=== PATIENT | female | born 2000 | race Caucasian/White ===

== ENCOUNTER 2021-07-26 16:14 | Outpatient (CLI) | payer OTHER, SELFPAY ==
[2021-08-02 18:08] LABS: Chlamydia By Nucleic Acid AMP Negative (Negative); Gonococcus By Nucleic Acid AMP Negative (Negative)
[2021-08-03 14:20] LABS: HPV APTIMA, High Risk Negative (Negative)
[2021-08-03 14:25] LABS: HPV Reflexed? YES, CHARGE PATIENT
== END 2021-07-26 23:59 | disposition short-term general hospital (02) ==
LOC: MFPLAB 16:16
PROVIDERS: PCP Family Medicine; Visit Provider Family Medicine
DX: Z12.4 Encounter for screening for malignant neoplasm of cervix (principal)
CPT/HCPCS: 87491; 87591; 87624; 88175; G0145

== ENCOUNTER 2021-07-28 07:08 | Outpatient (CLI) | payer OTHER, SELFPAY ==
[2021-07-28 11:06] LABS: Anion Gap 9 (5-15); BUN 9 mg/dL (7-18); BUN/Creat Ratio 11.2 RATIO (10-20); Calcium,Total 8.9 mg/dL (8.5-10.1); Chloride 107 mmol/L (98-107); Cholesterol 252 mg/dL (200); EST Glomerular Filtration Rate 95 mL/min (>60); Est Glom Filt Rate - Afr Amer 116 mL/min (>60); Glucose 76 mg/dL (74-106); High Density Lipoprotein 83 mg/dL; Sodium Level 138 mmol/L (136-145); Triglycerides 153 mg/dL; Very Low Density Lipoprotein 31 mg/dL (5-40)
== END 2021-07-28 23:59 | disposition short-term general hospital (02) ==
LOC: MTLAB 07:14
PROVIDERS: PCP Family Medicine; Referring Provider Family Medicine; Visit Provider Family Medicine
DX: Z00.00 Encounter for general adult medical examination without abnormal findings (principal)
CPT/HCPCS: 36415; 80048; 80061

== ENCOUNTER → 2023-04-06 | Outpatient (CLI) | payer OTHER, SELFPAY ==
[2023-04-06 10:26] LABS: Absolute Lymphocyte Count 2.65 X10^3/uL (0.83-4.51); Absolute Neutrophil Count 4.5 X10^3/uL (2.0-7.7); Basophil# 0.04 X10^3/uL; Basophil% 0.5 % (0-1); Eosinophil# 0.14 X10^3/uL; Eosinophils% 1.8 % (0-5); Hematocrit 42.8 % (37-47); Hemoglobin 13.5 g/dL (12.0-15.0); Lymphocyte # 2.65 X10^3/ul (0.83-4.51); Lymphocyte % 34.7 % (19-41); Mean Corp Hgb Conc 31.5 g/dL (32-36); Mean Corpuscular Hgb 28.9 pg (27.0-32.0); Mean Corpuscular Volume 91.6 fL (81-99); Mean Platelet Vol. 9.3 fl (6.2-12.0); Monocyte# 0.34 X10^3/uL; Monocyte% 4.5 % (0-10); NRBC Flagged by Analyzer 0 % (0-5); Neutrophil # 4.45 X10^3/uL (2.7-7.7); Neutrophil % 58.2 % (47-70); Platelet Count 267 K/mm3 (150-450); RBC Distribution Width CV 12.3 % (11.6-14.6); RBC Distribution Width SD 41.1 fl (35.1-43.9); Red Blood Count 4.67 M/mm3 (4.2-5.4); White Blood Count 7.6 K/mm3 (4.4-11.0)
[2023-04-06 10:48] LABS: Hemoglobin A1c 4.7 % (3.8-5.6)
[2023-04-06 10:55] LABS: Insulin 12.7 mU/L (2.6-37.6)
[2023-04-06 11:49] LABS: ALB/GLOB Ratio 0.9 RATIO (0.9-2.4); AST(SGOT) 12 U/L (15-37); Alanine Aminotransfer ALT/SGPT 18 U/L (13-56); Albumin, Serum 3.6 g/dL (3.2-5.0); Alkaline Phosphatase 55 U/L (45-117); Anion Gap 7 (5-15); BUN 9 mg/dL (7-18); BUN/Creat Ratio 11.3 RATIO (10-20); Calcium,Total 8.9 mg/dL (8.5-10.1); Chloride 106 mmol/L (98-107); Cholesterol 218 mg/dL (200); Creatinine, Serum 0.79 mg/dL (0.55-1.02); EST Glomerular Filtration Rate 95 mL/min (>60); Est Glom Filt Rate - Afr Amer 115 mL/min (>60); Glucose 74 mg/dL (74-106); High Density Lipoprotein 74 mg/dL; Potassium 3.6 mmol/L (3.5-5.1); Protein, Total 7.6 g/dL (6.4-8.2); Sodium Level 137 mmol/L (136-145); Thyroid Stim Hormone (TSH) 1.86 uIU/mL (0.358-3.74); Triglycerides 130 mg/dL; Very Low Density Lipoprotein 26 mg/dL (5-40)
== END | disposition home or self-care (01) ==
LOC: MFPLAB 09:35
PROVIDERS: PCP Family Medicine; Visit Provider Family Medicine
DX: Z00.00 Encounter for general adult medical examination without abnormal findings (principal); R42 Dizziness and giddiness
CPT/HCPCS: 36415; 80053; 80061; 83036; 83525; 84443; 85025